=== PATIENT | male | born 1990 | race Asian ===

== ENCOUNTER 2017-06-16 11:14 | Day surgery (SDC) | payer OTHER ==
[~2017-06-16] VITALS: Ht 177.8 cm; Wt 106.8 kg
[2017-06-16] MEDS ORDERED: NS 1,000 ML IV ONE (14:45)
[2017-06-16 15:26] LABS: BASO % 0.2 % (0.0-1.0); EOS # 0.1 10^3/uL (0.0-0.50); EOS % 0.6 % (0.0-3.0); IMMATURE GRANULOCYTE % 0.3 % (0-0); LYMPH # 2.5 10^3/uL (1.5-6.5); LYMPH % 25.7 % (24.0-44.0); MONO # 0.7 10^3/uL (0.0-0.8); MONO % 7.3 % (0.0-5.0); NEUTROPHILS # 6.3 10^3/uL (1.8-7.7); NEUTROPHILS % 65.9 % (36.0-66.0); PLATELET COUNT, AUTOMATED 241 10^3/uL (150-450); RED CELL DISTRIBUTION WIDTH 13.7 % (11.5-14.5); WHITE BLOOD COUNT 9.6 10^3/uL (4.0-10.0)
[2017-06-16 15:53] LABS: ALBUMIN/GLOBULIN RATIO 0.89 (1.00-1.93); ALKALINE PHOSPHATASE 65 U/L (45-117); ALT/SGPT 51 U/L (12-78); AMYLASE 58 U/L (25-115); ANION GAP 5 MEQ/L (8-16); AST/SGOT 17 U/L (7-37); BILIRUBIN,DIRECT 0.1 MG/DL (0.0-0.2); BILIRUBIN,TOTAL 0.5 MG/DL (0.2-1.0); BLOOD UREA NITROGEN 9 MG/DL (7-18); CALCIUM LEVEL 9.5 MG/DL (8.5-10.1); CARBON DIOXIDE LEVEL 31 MEQ/L (21-32); CHLORIDE LEVEL 102 MEQ/L (98-107); CREATININE FOR GFR 0.83 MG/DL (0.70-1.30); GLOMERULAR FILTRATION RATE > 60.0 (>60); GLUCOSE, FASTING 93 MG/DL (70-105); POTASSIUM SERUM 4.1 MEQ/L (3.5-5.1); SODIUM LEVEL 138 MEQ/L (136-145); TOTAL PROTEIN 8.5 GM/DL (6.4-8.2)
[2017-06-16] MEDS ORDERED: ISOVUE-370 76% 100ML VIAL (Q9967) As Ordered ONE (15:53)
[2017-06-16] MEDS ORDERED: LIDOCAINE 2% INJ 100 MG/5 ML SDV (FOR ANES.) As Ordered ONE (17:12)
[2017-06-16] MEDS ORDERED: PROPOFOL 200 MG/20 ML VIAL As Ordered ONE (17:12)
[2017-06-16] MEDS ORDERED: KETOROLAC 60 MG/2 ML VIAL (J1885) As Ordered ONE (17:12)
[2017-06-16] MEDS ORDERED: ONDANSETRON 4MG/2ML VIAL (J2405) As Ordered ONE (17:12)
[2017-06-16] MEDS ORDERED: ROCURONIUM BROMIDE 50 MG/5 ML VIAL As Ordered ONE (17:12)
[2017-06-16] MEDS ORDERED: MIDAZOLAM INJ 2 MG/2 ML VIAL (J2250) As Ordered ONE (17:15)
[2017-06-16] MEDS ORDERED: fentaNYL 100 MCG/2 ML INJECTION (J3010) As Ordered ONE (17:16)
--- NOTE | 2017-06-16 17:22 | REP ---
CT ABDOMEN PELVIS WITH IV CONTRAST ONLY: 06/16/2017. Clinical history: Right lower quadrant and left lower quadrant abdominal pain, was initially periumbilical. Technique. The patient received a bolus of 100 mL of Isovue 370 scanning through the abdomen pelvis with coronal and sagittal reconstructions provided. Bone windows also reviewed. Findings: CT abdomen: Lung bases are clear. Heart is not enlarged. There is no pericardial thickening or effusion and no aortic aneurysm. No hepatosplenomegaly, focal hepatic or splenic mass nor intrahepatic biliary dilatation. Gallbladder without calcified stone or mass. Pancreas unremarkable. Adrenal glands normal. Kidneys without stone, mass or cyst. Extrarenal pelves are noted bilaterally, left greater than right. Ureters are followed to the bladder with no renal or ureteral stone identified. The aorta is intact. No periaortic or retroperitoneal pathologic sized lymphadenopathy. Lung window review of all CT slices in the abdomen shows no perforation or free air. Small bowel loops unremarkable. The right abdomen just at about at the level at the iliac crest, the appendix extending to the posterior cecum with extensive periappendiceal inflammatory changes. Stranding in the fat and along the lateral coronal fascia on the right side. The adjacent terminal ileum shows some inflammatory changes in the side abutting the appendix. Lung window review shows no evidence of perforation, free air or abscess at this time. There are a few tiny nodes in the pericecal region. Remainder of the abdominal portion of the colon was unremarkable. Bone windows show lumbar and lower thoracic spine without compression deformity. 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 Visualized thoracic levels and the ribs were unremarkable. CT pelvis: The sacrum, SI joints, pelvis, hips, acetabuli, pubic rami and symphysis pubis were all unremarkable. There are some bone islands in the hips bilaterally as benign findings. Bladder unremarkable. No dilated distal ureters or stones. No bladder calculi mass or wall thickening. No ventral or inguinal hernia nor pathologic sized inguinal adenopathy. No pelvic adenopathy or free fluid. Distal left colon, sigmoid and rectum intact. Impression: 1. Evidence for dilated appendix with extensive inflammatory changes adjacent but no perforation or abscess at this time. No air bubbles adjacent to it. No appendicolith seen. The terminal ileum adjacent to the appendix shows inflammatory changes but above and below that site. There is no inflammatory change. Findings are consistent with acute appendicitis without perforation or abscess. 2. I do not see any other significant CT findings abdomen or pelvis. Signed by Tyler Marsh MD 06/17/2017 08:15 P
[2017-06-16] MEDS ORDERED: ZOSYN 3.375 GM VIAL (J2543) As Ordered ONE (17:25)
[2017-06-16] MEDS ORDERED: BUPIVACAINE/EPIN 0.5% 30 ML VIAL As Ordered ONE (17:25)
[2017-06-16] MEDS ORDERED: ONDANSETRON 4MG/2ML VIAL (J2405) IV PRN ×2 (17:30→19:00)
[2017-06-16] MEDS ORDERED: ACETAMINOPHEN TAB 650MG DOSE (2X325MG) PO PRN (17:30)
[2017-06-16] MEDS ORDERED: MORPHINE 2 MG/ML 1ML SYRINGE IV PRN (17:30)
[2017-06-16] MEDS ORDERED: PHENYLephrine HCL 500 MCG/5 ML (100MCG/ML) SYRINGE (J2370) As Ordered ONE ×2 (17:54→18:16)
[2017-06-16] MEDS ORDERED: GLYCOPYRROLATE INJ 0.2 MG/ML 2 ML VIAL As Ordered ONE (18:05)
[2017-06-16] MEDS ORDERED: MORPHINE 10 MG/ML 1ML VIAL IV PRN (19:00)
[2017-06-16] MEDS ORDERED: LR 1,000 ML IV SCH (19:00)
[2017-06-16] MEDS ORDERED: fentaNYL 100 MCG/2 ML INJECTION (J3010) IV PRN (19:00)
[2017-06-16] MEDS ORDERED: METOCLOPRAMIDE INJ 10MG/2ML VIAL (J2765) IV PRN (19:00)
[2017-06-16] MEDS ORDERED: PERCOCET 5MG/325MG TAB PO PRN (19:00)
--- NOTE | 2017-06-16 19:45 | HPE ---
DATE OF ADMISSION: 06/16/2017 CHIEF COMPLAINT: Right lower quadrant abdominal pain. HISTORY OF PRESENT ILLNESS: Patient is a 27-year-old male who presents right lower quadrant abdominal pain since last . It got better and worse off and over the past 4 days. Today, the pain was starting to get worse again so he came into emergency room for evaluation. In the ER he had normal vitals normal labs however, CT scan showed signs of a dilated thickened appendix with concern for acute appendicitis. He denies any fevers or chills. No nausea or vomiting. No changes in bowel or bladder movements. No recent illnesses or travel in the last month. No recent trauma to the area. PAST MEDICAL HISTORY: Negative. PAST SURGICAL HISTORY: Right mastoidectomy. ALLERGIES: None. HOME MEDICATIONS: None. SOCIAL HISTORY: Denies drug, alcohol, or tobacco. FAMILY HISTORY: Noncontributory. REVIEW OF SYSTEMS: Pertinent positives as stated in the HPI. PHYSICAL EXAMINATION: GENERAL: In no acute distress. Vitals: Stable, afebrile. HEENT: Pupils equal round react to light accommodation. HEART: S1-S2 regular rate and rhythm. LUNGS: Clear auscultation bilaterally. ABDOMEN: Soft, tender to palpation right lower quadrant. No rebounding or guarding. Bowel sounds positive. EXTREMITIES: No clubbing, cyanosis or edema. LABS: White count 9.6, hemoglobin 15, platelets 241. IMAGING: CT abdomen and pelvis shows evidence of dilated appendix with extensive inflammatory changes adjacent to it, but no signs of perforation or abscess. No air bubbles. ASSESSMENT/PLAN: The patient is 27-year-old male with signs and symptoms consistent of acute appendicitis. RECOMMENDATIONS: Proceed with laparoscopic possible open appendectomy. Risks and benefits of the procedure not limited but including bleeding, infection, hernia formation, damage surrounding structure, need for further surgery discussed in detail with the patient. Informed consent was obtained and the procedure was planned. Postoperatively he will be admitted to the floor overnight. As long as he is doing well in the morning he will discharge home.
[2017-06-16] MEDS: LR 1,000 ML IV SCH (20:17)
[2017-06-16 20:30] VITALS: BP 131/87
[2017-06-16 21:00] VITALS: BP 136/89
[2017-06-16] MEDS: SENOKOT S TAB PO SCH (21:00)
[2017-06-16 22:00] VITALS: BP 134/78
[2017-06-16 23:00] VITALS: BP 137/89
[2017-06-17] VITALS (7 sets, daily range): BP systolic 122–146; BP diastolic 70–88
[2017-06-17] MEDS: NORCO, ANEXSIA 5/325MG TABLET (HYDROcodone/ACETAMINOPHEN) PO PRN ×4 (00:09→23:35)
[2017-06-17] MEDS: PIPERACILLIN/TAZOBACTAM SOD 3.375 GM in APPROPRIATE DILUENT 1 EA IV SCH ×5 (00:09→23:34)
[2017-06-17] MEDS: LR 1,000 ML IV SCH (01:29)
[2017-06-17 07:28] LABS: MEAN CORPUSCULAR HEMOGLOBIN 29.1 pg (27.0-33.0); MEAN CORPUSCULAR HGB CONC 34.3 g/dl (32.0-36.5); MEAN CORPUSCULAR VOLUME 84.9 fl (80.0-96.0); PLATELET COUNT, AUTOMATED 220 10^3/uL (150-450); RED CELL DISTRIBUTION WIDTH 13.9 % (11.5-14.5); WHITE BLOOD COUNT 10.7 10^3/uL (4.0-10.0)
--- NOTE | 2017-06-17 07:30 | RO ---
DATE OF PROCEDURE: 06/16/2017 PREOPERATIVE DIAGNOSIS: Acute appendicitis. POSTOPERATIVE DIAGNOSIS: Acute appendicitis. PROCEDURE: Laparoscopic appendectomy. SURGEON: Dr. Afshin Larios FOSTER CARE WORKER: None. ANESTHESIA: General. ESTIMATED BLOOD LOSS: 5. COMPLICATIONS: None. INDICATIONS FOR PROCEDURE: The patient is 27-year-old male who presents with right lower quadrant abdominal pain and found have signs of significant inflammation and swelling around the appendix on CAT scan. Recommendation was to proceed with laparoscopic possible open appendectomy. Risks and benefits of procedure not limited to, but including bleeding, infection, hernia formation, damage to surrounding structures, need for further surgery were discussed in detail with the patient, informed consent obtained and procedure was planned. DESCRIPTION OF PROCEDURE: The patient was brought back to operating room three after sufficient sedation. The abdomen was sterilely prepped and draped. Next a time-out was done to confirm proper patient and proper procedure. Following that, a 5 mm incision was made in the left lower quadrant, Veress needle was inserted and the abdomen was insufflated to 15 mmHg. Next, the Veress needle was removed. A 5 mm Optiview port was used to gain access to the abdomen. Once the abdomen was entered, an 8 mm port was placed supraumbilically and another 5 mm port suprapubically in the midline. The appendix was then identified in the right lower quadrant laterally. It was densely adhered to the terminal ileum with a large swelling and phlegmon distally. This was carefully mobilized away from the terminal ileum. Towards the base the appendix was all fairly normal size. The mesoappendix was continually taken down using the Enseal until the base was reached and space was reached. It was encircled twice with two PDS Endoloops and then amputated using the Enseal. The appendix was brought out with a 5 mm EndoCatch bag through the 8 mm port site. The abdomen was then examined one last time to confirm hemostasis. The abdomen was then desufflated. The skin incisions closed #4-0 Vicryl subcuticular sutures. The abdomen was cleaned and dried. Steri-Strips, 4x4 and tape were applied, thus ending the procedure.
[2017-06-17 07:49] LABS: ANION GAP 8 MEQ/L (8-16); BLOOD UREA NITROGEN 7 MG/DL (7-18); CALCIUM LEVEL 8.3 MG/DL (8.5-10.1); CARBON DIOXIDE LEVEL 29 MEQ/L (21-32); CHLORIDE LEVEL 102 MEQ/L (98-107); CREATININE FOR GFR 0.92 MG/DL (0.70-1.30); GLOMERULAR FILTRATION RATE > 60.0 (>60); GLUCOSE, FASTING 131 MG/DL (70-105); POTASSIUM SERUM 3.8 MEQ/L (3.5-5.1); SODIUM LEVEL 139 MEQ/L (136-145)
[2017-06-17] MEDS: SENOKOT S TAB PO SCH ×2 (08:17→21:50)
[2017-06-17] MEDS: KETOROLAC 30 MG/ML VIAL (J1885) IV PRN (09:27)
[2017-06-18 03:00] VITALS: BP 133/83
[2017-06-18] MEDS: KETOROLAC 30 MG/ML VIAL (J1885) IV PRN (04:28)
[2017-06-18 06:00] VITALS: BP 141/84
[2017-06-18] MEDS: PIPERACILLIN/TAZOBACTAM SOD 3.375 GM in APPROPRIATE DILUENT 1 EA IV SCH (06:11)
[2017-06-18 07:31] LABS: MEAN CORPUSCULAR HEMOGLOBIN 28.4 pg (27.0-33.0); MEAN CORPUSCULAR HGB CONC 33.1 g/dl (32.0-36.5); MEAN CORPUSCULAR VOLUME 85.8 fl (80.0-96.0); PLATELET COUNT, AUTOMATED 212 10^3/uL (150-450); RED CELL DISTRIBUTION WIDTH 13.9 % (11.5-14.5); WHITE BLOOD COUNT 9.6 10^3/uL (4.0-10.0)
[2017-06-18 07:38] LABS: ANION GAP 7 MEQ/L (8-16); BLOOD UREA NITROGEN 7 MG/DL (7-18); CALCIUM LEVEL 8.8 MG/DL (8.5-10.1); CARBON DIOXIDE LEVEL 30 MEQ/L (21-32); CHLORIDE LEVEL 102 MEQ/L (98-107); CREATININE FOR GFR 0.86 MG/DL (0.70-1.30); GLOMERULAR FILTRATION RATE > 60.0 (>60); GLUCOSE, FASTING 94 MG/DL (70-105); POTASSIUM SERUM 3.6 MEQ/L (3.5-5.1); SODIUM LEVEL 139 MEQ/L (136-145)
[2017-06-18] MEDS: SENOKOT S TAB PO SCH (09:32)
[2017-06-18 10:00] VITALS: BP 144/90
[2017-06-18] MEDS ORDERED: NORCOTAB PO (10:03)
--- NOTE | 2017-06-18 10:58 | DSES ---
DATE OF ADMISSION: 06/16/2017 DATE OF DISCHARGE: ADMISSION DIAGNOSIS: Acute appendicitis. DISCHARGE DIAGNOSIS: Acute appendicitis. HOSPITAL COURSE: The patient is a 27-year-old male who presented on 06/16/2017 with abdominal pain for about 4 days and found to have acute appendicitis on CAT scan. He was taken to the operating room in the afternoon of 06/16/2017 for a laparoscopic appendectomy. Postoperatively, he was doing well. He had some fevers overnight as well as some tachycardia and hypertension that was all attributed to urinary retention. Once he was able to urinate, all of his symptoms improved. Just to be safe, we watched him for another 24 hours. He continued to do well. This morning, 06/18/2017, his pain is almost gone. He has been up ambulating in the halls, tolerating a diet and denies any fevers or chills. No nausea or vomiting. The plan is to discharge home today. He will follow up me in the office in 2 weeks. He is given a script for Creola pain med upon discharge and also advised to take Motrin as needed for pain. All of his questions were answered. He will call the office with any new questions.
== END 2017-06-18 12:15 | disposition home or self-care (01) ==
LOC: M ED 11:14 → M OROP 16:45 → M MS5PR 19:50 → M OROP 06-18 12:15
PROVIDERS: ATTEND Surgery
DX: K35.80 Unspecified acute appendicitis (principal); R33.9 Retention of urine, unspecified; R50.9 Fever, unspecified; I10 Essential (primary) hypertension; R00.0 Tachycardia, unspecified
CPT/HCPCS: 36415; 44970; 74177; 80048; 80076; 81001; 82150; 83690; 85014; 85018; 85025; 85027; 88304; 96374; 96375; 96376; 99284; J1885; J2250; J2370; J2405; J2543; J3010; Q9967

== ENCOUNTER → 2019-01-13 | Outpatient (REF) | payer OTHER ==
[~2019-01-13] MED LIST: HYDR-3715 PO
== END ==
LOC: M LAB REF 18:50
PROVIDERS: ATTEND Physician Assistant
DX: J02.9 Acute pharyngitis, unspecified (principal)

== ENCOUNTER → 2022-04-04 | Outpatient (CLI) | payer OTHER ==
[2022-04-04 20:11] LABS: BASO % 0.4 % (0.0-1.0); EOS # 0.2 10^3/uL (0.0-0.5); EOS % 2.3 % (0.0-3.0); HEMATOCRIT 46.3 % (42.0-52.0); HEMOGLOBIN 15.2 g/dl (13.5-17.5); LYMPH # 2.6 10^3/uL (1.5-5.0); LYMPH % 36.7 % (24.0-44.0); MEAN CORPUSCULAR HEMOGLOBIN 28.3 pg (27.0-33.0); MEAN CORPUSCULAR HGB CONC 32.8 g/dl (32.0-36.5); MEAN CORPUSCULAR VOLUME 86.1 fl (80.0-96.0); MONO # 0.4 10^3/uL (0.0-0.8); MONO % 6.3 % (2.0-8.0); NEUTROPHILS # 3.8 10^3/uL (1.5-8.5); NEUTROPHILS % 53.9 % (36.0-66.0); PLATELET COUNT, AUTOMATED 273 10^3/uL (150-450); RED BLOOD COUNT 5.38 10^6/uL (4.30-6.10)
[2022-04-04 20:33] LABS: APPEARANCE, URINE MANUAL CLEAR (CLEAR); BILIRUBIN, URINE MANUAL NEGATIVE (NEGATIVE); BLOOD URINE MANUAL NEGATIVE (NEGATIVE); COLOR, URINE MANUAL YELLOW (YELLOW); GLUCOSE, URINE (UA) MANUAL NEGATIVE (NEGATIVE); KETONE, URINE MANUAL NEGATIVE (NEGATIVE); LEUKOCYTE ESTERASE, URINE MAN NEGATIVE (NEGATIVE); NITRITE, URINE MANUAL NEGATIVE (NEGATIVE); PROTEIN, URINE MANUAL NEGATIVE (NEGATIVE); SPECIFIC GRAVITY,URINE MANUAL 1.025 (1.002-1.035); UROBILINOGEN, URINE MANUAL NORMAL (NORMAL)
[2022-04-04 20:53] LABS: ALBUMIN 3.8 GM/DL (3.2-5.2); ALT/SGPT 125 U/L (12-78); BILIRUBIN,TOTAL 0.5 MG/DL (0.2-1.0); BLOOD UREA NITROGEN 12 MG/DL (7-18); CARBON DIOXIDE LEVEL 27 MEQ/L (21-32); CHLORIDE LEVEL 105 MEQ/L (98-107); CHOLESTEROL LEVEL 219 MG/DL (<200); CHOLESTEROL RISK RATIO 4.562 (<5); CREATININE FOR GFR 0.89 MG/DL (0.70-1.30); GLOMERULAR FILTRATION RATE > 60.0 (>60); GLUCOSE, FASTING 114 MG/DL (70-100); HDL CHOLESTEROL 48 MG/DL (>40); LDL CHOLESTEROL 143 MG/DL (<100); NON-HDL-C 171 MG/DL; SODIUM LEVEL 138 MEQ/L (136-145); THYROID STIMULATING HORMONE 0.418 uIU/ML (0.358-3.740); TOTAL PROTEIN 7.4 GM/DL (6.4-8.2); TRIGLYCERIDES LEVEL 138 MG/DL (<150)
== END ==
LOC: M WUC 15:30
PROVIDERS: ATTEND Family Medicine
DX: R63.5 Abnormal weight gain (principal); F98.0 Enuresis not due to a substance or known physiological condition

== ENCOUNTER → 2024-09-14 | Outpatient (REF) | payer OTHER | LOC: EEVIPCON 12:28 → M LAB REF 12:28 | PROVIDERS: ATTEND Physician Assistant | DX: R30.0 Dysuria (principal) ==